=== PATIENT | male | born 1960 | race Caucasian/White ===

== ENCOUNTER → 2023-07-12 | Outpatient (CLI) | payer OTHER, SELFPAY ==
--- NOTE | 2023-07-12 11:32 | CT_ITS ---
STUDY: CT LEFT SHOULDER following intra-articular contrast injection. REASON FOR EXAM: Male, 62 years old. Chronic pain. RADIATION DOSAGE (If Supplied By Facility): CTDIvol = ( 25.62 ) mGy, DLP = ( 596.96 ) mGycm TECHNIQUE: The patient was scanned in a multi detector CT scanner. High resolution transaxial imaging was performed without the administration of intravenous contrast material. Sagittal and coronal images were reconstructed. Individualized dose optimization techniques were used for this CT. COMPARISON: None. FINDINGS: There is mild osteoarthritis of the glenohumeral articulation, with mild articular joint space narrowing and mild osteoarthritic spurring. Normal glenoid rim, neck and visualized scapula. Normal humeral head, neck and tuberosities. Normal coracoid process. Normal visualized lateral clavicle. Normal acromioclavicular articulation. There is a Type II morphology (curved), with a neutral orientation. There is evidence of a partial tear of the rotator cuff. CT/Extremity Upper WITH Contrast IMPRESSION: Findings suggestive of a partial tear of the rotator cuff. Mild degree of the joint space narrowing of the glenohumeral joint. Electronically Signed: Jero Marroquin MD at 14:23 EST ,
--- NOTE | 2023-07-12 12:10 | RAD_ITS ---
STUDY: X-RAY - LEFT SHOULDER REASON FOR EXAM: Male, 62 years old. POST LEFT SHOULDER ARTHROGRAM TECHNIQUE: 4 view(s) of the shoulder. COMPARISON: None. FINDINGS: There is mild degenerative arthrosis of the glenohumeral articulation. Normal acromioclavicular joint. Normal acromion. Normal humeral head and visualized proximal humerus. The soft tissue structures are unremarkable. Normal visualized pulmonary apex. RAD/Shoulder min 2 Views IMPRESSION: Post left shoulder arthrogram images. Electronically Signed: Jero Marroquin MD at 10:03 [facility] ,
[2023-07-12] MEDS: Lidocaine 2% (5ml sdv) 5 ML VIAL.MPF INFILT (12:35)
[2023-07-12] MEDS: Iopamidol 10 ML in Syringe 1 EACH 600 ML INTRAARTIC (12:40)
[2023-07-12] MEDS: Gadoterate Meglumine Diluted 10 ML, Iopamidol 5 ML, Lidocaine 1% (20 ml mdv) 5 ML, Epin... INTRAARTIC (12:40)
--- NOTE | 2023-07-12 14:02 | PCM.OP.PRO ---
Procedure Report Date of Procedure: 07/12/23 Assessment & Plan Assessment/Plan (1) Left shoulder pain: QUALIFIERS: Chronicity: unspecified Qualified Code(s): M25.512 - Pain in left shoulder PLAN: PROCEDURE: Arthrogram-left shoulder ORDERING PROVIDER: Missy Porras PA-C INDICATION: Male, 62 years old. Left shoulder pain. PROVIDER: Susan Norman APRN-[facility] CONSENT: The procedure as well as the benefits and possible complications including bleeding and infection were explained to the patient. Informed consent was obtained. TECHNIQUE: The patient was positioned supine. The overlying skin was prepped and draped in the usual sterile fashion. Following injection of local anesthetic with 2% lidocaine and under direct fluoroscopic guidance, a 22-gauge spinal needle was placed into the left glenohumeral space. 2 cc of Isovue 300 was injected for confirmation. Following this, 10 cc of arthrogram contrast (gadoterate, iopamidol, lidocaine, and epinephrine), compounded by pharmacy, was injected. All elements of maximal sterile barrier technique followed. Patient tolerated procedure well. IMPRESSION: Successful fluoroscopic guided left shoulder arthrogram. Procedures Radiology Radiology Xray Procedures: [id number] Arthrogram Shoulder
== END | disposition home or self-care (01) ==
PROVIDERS: PCP Family Medicine; Referring Provider Physician Assistant Surgical; Visit Provider Physician Assistant Surgical
DX: M25.512 Pain in left shoulder (principal); S43.492A Other sprain of left shoulder joint, initial encounter
CPT/HCPCS: 20610; 73030; 73201; 77002; Q9967